=== PATIENT | male | born 1965 | race Caucasian/White ===

== ENCOUNTER 2018-02-20 07:03 | Inpatient (IN) | END 2018-03-03 18:33 | disposition home health service (06) | DRG 853 ==

== ENCOUNTER 2018-10-09 11:18 | Day surgery (SDC) | payer OTHER ==
[~2018-10-09] VITALS: Ht 175.3 cm; Wt 118.0 kg
[~2018-10-09 11:18] MED LIST: ACET325T33 PO; AMLO1CAP14 PO; AMOX1TAB10 PO; ASC500 PO; CLIN150C17 PO; FER325 PO; FLUC100T PO; GLYB5TAB3 PO; HC30CR25 TOP; Insulin Glargine SC; LACT1CAP28 PO; OXYC-481 PO; PIOG45TA64 PO; REPA2TAB23 PO
[2018-10-09 12:03] VITALS: Ht 175.3 cm; Wt 118.0 kg
[2018-10-09 12:13] VITALS: BP 142/77; PULSE 89; RESP 17
[2018-10-09] MEDS ORDERED: ASPI-903 PO (12:18)
[2018-10-09] MEDS ORDERED: [UNRECOGNIZED DRUG - OTHER] (12:18)
[2018-10-09] MEDS ORDERED: ATOR40TA68 PO (12:18)
--- NOTE | 2018-10-09 13:01 | PREAC ---
Date/Time of Note Date/Time of Note DATE: 10/09/18 TIME: 12:59 Anesthesia Eval and Record Evaluation Time Pre-Procedure Interview DATE: 10/09/18 TIME: 12:59 Age 53 Sex male NPO: 8 hrs Preoperative diagnosis screening colon cancer Planned procedure colonoscopy Past Medical History Past Medical History: Includes Cardio: HTN, Dyslipidemia Endo: Diabetes GI: Obesity Surgery & Anesthesia Issues No known issue Meds Anticoagulation: Yes (asa 81 mg) Beta Mika within 24 hr: No Reason Beta Mika not given: Pt. not on B-Mika Reported Medications Aspirin* (Aspirin* Chew) 81 Mg Tab.chew, 81 MG PO DAILY, TAB.CHEW 10/09/18 Atorvastatin* (Atorvastatin*) 40 Mg Tablet, 40 MG PO QHS, #30 TAB 10/09/18 [Metformin Bid] No Conflict Check 10/09/18 Pioglitazone Hcl* (Pioglitazone Hcl*) 45 Mg Tablet, 45 MG PO DAILY, TAB 02/20/18 Amlodipine-Benazepril (Amlodipine-Benazepril) 5-40 Mg Capsule, 1 TAB PO DAILY, #30 TAB 02/20/18 Glyburide* (Glyburide*) 5 Mg Tablet, 5 MG PO DAILY, #30 TAB 02/20/18 Discontinued Reported Medications Hydrocortisone* Topical (Hydrocortisone* Topical) 2.5%-28.3 Gm Cream..g., 1 APPLIC TOP BID, TUB 02/20/18 Discontinued Scripts Ferrous Sulfate* (Ferrous Sulfate*) 325 Mg Tabec, 325 MG PO BID for 7 Days, #20 TAB Prov:GIORGI GALEANA MD 03/03/18 Fluconazole* (Diflucan*) 100 Mg Tablet, 100 MG PO DAILY for 10 Days, #10 TAB Prov:GIORGI GALEANA MD 03/03/18 Clindamycin Hcl* (Cleocin*) 150 Mg Cap, 450 MG PO Q6 for 10 Days, #40 CAP Prov:GIORGI GALEANA MD 03/03/18 Amoxicillin/Potassium Clav (Amox-Clav 875-125 mg Tablet) 875-125 mg Tab, 875 MG PO BID for 10 Days, #20 TAB Prov:GIORGI GALEANA MD 03/03/18 Ascorbic Acid (Vitamin C) 500 Mg Tab, 500 MG PO DAILY for 10 Days, #14 TAB Prov:GIORGI GALEANA MD 03/03/18 Repaglinide* (Prandin*) 2 Mg Tablet, 2 MG PO AC MEALS for 30 Days, #30 TAB Prov:GIORGI GALEANA MD 03/03/18 [Insulin Glargine] 100 UNITS/ML SOLN No Conflict Check, 30 UNITS SC DAILY@2000 for 10 Days, #10 Prov:GIORGI GALEANA MD 03/03/18 Lactobacillus Rhamnosus GG (Culturelle) 1 Each Capsule, 1 CAP PO BID for 14 Days, CAP Prov:GIORGI GALEANA MD 03/03/18 Oxycodone Hcl* (IR) (Roxicodone*) 5 Mg Tab, 5 MG PO Q4H PRN for MODERATE PAIN LEVEL 4-6 for 7 Days, TAB Prov:GIORGI GALEANA MD 03/03/18 Acetaminophen* (Tylenol*) 325 Mg Tablet, 650 MG PO Q6H PRN for MILD PAIN(1-3)OR ELEVATED TEMP for 1 Day, TAB Prov:GIORGI GALEANA MD 03/03/18 Meds reviewed: Yes Allergies Coded Allergies: No Known Allergy (Unverified , 10/09/18) Allergies Reviewed: Yes Labs/Studies Labs Reviewed: Reviewed by anesthesiologist (n/a) test: N/A Pre-procedure Exam Last vitals Vital Signs Date Temp Pulse Resp B/P (MAP) Pulse Ox O2 O2 Flow FiO2 Time Delivery Rate 10/09/18 98.3 89 17 142/77 98 Room Air 12:13 (98) Airway: Adequate mouth opening, Adequate thyromental dist Mallampati: Mallampati II Teeth: Normal Lung: Normal Heart: Normal ASA Physical Status ASA physical status: 3 Emergency: None Planned Pain Management Parenteral pain med, Local by surgeon Pre-operative Attestations Prior to commencing anesthesia and surgery, the patient was re-evaluated, there was verification of: *The patient's identity *The results of appropriate recent lab work and preoperative vital signs *The above evaluation not changing prior to induction *Anesthetic plan, risk benefits, alternative and complications discussed with patient/family; questions answered; patient/family understands, accepts and wishes to proceed. NIRALI DAWKINS October 09, 2018 13:01
[2018-10-09] MEDS ORDERED: PROPOFOL 20 ML ONE (13:04)
[2018-10-09] MEDS ORDERED: FENTAnyl 50 MCG/ML VIAL ONE (13:14)
[2018-10-09 14:05] VITALS: BP 110/71; PULSE 77; RESP 22
--- NOTE | 2018-10-09 16:48 | PAC ---
Date/Time of Note Date/Time of Note DATE: 10/09/18 TIME: 16:48 Post-Anesthesia Notes Post-Anesthesia Note Last documented vital signs Vital Signs Date Temp Pulse Resp B/P (MAP) Pulse Ox O2 O2 Flow FiO2 Time Delivery Rate 10/09/18 98.2 77 22 110/71 96 Room Air 14:05 (84) 10/09/18 98.3 12:13 Activity: WNL Respiratory function: WNL Cardiovascular function: WNL Mental status: Baseline Pain reasonably controlled: Yes Hydration appropriate: Yes Nausea/Vomiting absent: No SAIDA CELAYA MD October 09, 2018 16:48
== END 2018-10-09 14:48 | disposition home or self-care (01) ==
LOC: GIL 11:18
PROVIDERS: ATTEND Internal Medicine Gastroenterology
DX: Z12.11 Encounter for screening for malignant neoplasm of colon (principal); K64.8 Other hemorrhoids; K64.4 Residual hemorrhoidal skin tags; E11.9 Type 2 diabetes mellitus without complications; I10 Essential (primary) hypertension; Z79.82 Long term (current) use of aspirin; Z79.84 Long term (current) use of oral hypoglycemic drugs
CPT/HCPCS: 45378; 82962; J3010; Z7610